=== PATIENT | female | born 2005 | race Caucasian/White ===

== ENCOUNTER 2025-04-30 19:00 | Emergency (ER) | payer OTHER, SELFPAY ==
[2025-04-30 19:01] VITALS: BP 127/83; PULSE 135; RESP 20; TEMP 39.6; O2SAT 96; BMI 24.7
--- NOTE | 2025-04-30 19:55 | EDS_ITS ---
HPI History of Present Illness Chief Complaint: General Illness Informant: patient and parent Narrative Narrative: 19-year-old female started having a headache gradual onset around a week ago, followed by subjective fevers and chills although she measured her temperature once and it was 98, sore throat and feeling like her throat is swollen although she is able to drink fluids she has been nauseated and having upper abdominal pain and not wanting to eat much. She has had some episodes of lightheadedness when she stands up but no syncope. No cough or dyspnea. She has had a couple episodes of nausea and dry heaving. No diarrhea. [facility] Medical History (Updated 04/30/25 @ 23:[address] Mathew Blakely MD) PCOS (polycystic ovarian syndrome) Physical exam, pre-employment Home Medications ?Medication ?Instructions ?Recorded ?Last Taken ?Type cephalexin 500 mg capsule 500 mg PO Q6 #28 CAPSULES Unknown Rx prednisone 20 mg tablet 40 mg (2 x 20 mg) PO DAILY 3 days 04/30/25 Unknown Rx #6 tabs Allergy/AdvReac Type Severity Reaction Status Date / Time Penicillins Allergy Mild Hives Verified 04/30/25 19:00 Social History Smoking Status: Never smoker ROS ROS ED Constitutional Constitutional ED: Reports chills, fever(s) and subjective Eyes Eyes: Denies change in vision or diplopia ENT ENT ED: Reports sore throat; Denies ear pain, nasal congestion or rhinorrhea Cardiovascular Cardiovascular: Denies chest pain or palpitations Respiratory/Chest Respiratory/Chest: Denies cough or dyspnea Gastrointestinal Gastrointestinal: Reports abdominal pain, nausea and vomiting; Denies diarrhea Genitourinary Genitourinary ED: Denies dysuria or hematuria Musculoskeletal Musculoskeletal: Denies myalgias or neck pain Integumentary Denies abscess or rash Neurologic Neurologic: Reports headache(s); Denies paresthesias or weakness Psychiatric Psychiatric: Denies depression or suicidal thoughts Endocrine Endocrinology: Denies polydipsia or polyuria EXAM Physical Exam Const Vital Signs: 04/30/25 19:01 04/30/25 19:01 04/30/25 20:00 Temperature 103.2 F H 103.2 F H 103.2 F H Temperature Source Oral Oral Oral Pulse Rate 135 H 135 H 117 H Respiratory Rate 20 H 20 H 23 H Blood Pressure 127/83 H 127/83 H 122/73 H Blood Pressure Mean 97 97 89 Pulse Ox 96 96 95 Oxygen Delivery Method Room Air Room Air Room Air 04/30/25 21:00 04/30/25 22:00 Temperature 100.1 F H 98.7 F Temperature Source Oral Oral Pulse Rate 114 H 103 H Respiratory Rate 20 H 20 H Blood Pressure 105/63 105/63 Blood Pressure Mean 77 77 Pulse Ox 100 99 Oxygen Delivery Method Room Air Room Air Positive well nourished and well developed General Appearance ED: well developed and NAD HEENT Reports moist mucous membranes HEENT Narrative: Hot potato voice. Bilateral tonsillar edema symmetric and exudates present. No stridor. normocephalic and atraumatic Throat: posterior oropharynx abnormal Eyes PERRL and EOMs intact bilaterally Neck supple and no meningeal signs Neck Narrative: Bilateral submandibular lymphadenopathy no posterior lymphadenopathy. Resp normal respiratory effort and clear to auscultation bilaterally Cardio no murmurs Rate: regular rate and tachycardic Rhythm: regular rhythm GI non-distended GI Narrative: Tender throughout upper abdomen no guarding or rebound otherwise benign abdomen Auscultation: normoactive bowel sounds Palpation: soft Back/Spine no CVA tenderness Neuro oriented x3, CN's II-XII intact bilaterally and no sensory deficits noted Sensorium / Orientation: alert Motor Exam: strength 5/5 throughout Psych mental status grossly normal Mood & Affect: anxious Skin Lesions: no lesions Rashes: no rashes MDM MDM MDM Narrative Medical decision making narrative: This patient appears to have tonsillitis and her symptoms are mostly consistent with strep throat, she has a temperature of 103.2, and all of the center criteria. However she has abdominal pain and tenderness. This suggest the possibility of mononucleosis. It takes a little while for our strep PCR test to return so I suggested testing her for all of the above at the same time to minimize delays and they were amenable to that. While getting blood work, patient was also amenable to getting an IV and a liter of fluid, Toradol, Zofran to try to help with her symptoms. All she felt a little better. The fever resolved. Her strep returned negative, her Monospot returned negative, and her blood tests are inconsistent with mononucleosis showing no atypical lymphocytes and no elevated liver enzymes. Furthermore, she actually has a predilection of neutrophils. I am going to treat her with steroids and antibiotics as if this is possibly group B strep infection, she has had hives to penicillins a long time ago, unclear if she has ever had cephalosporin, low risk to treat her with cephalexin and we discussed the low risk of cross-reactivity there, as well as prednisone. She states she was diagnosed with prediabetes, she was prescribed metformin but does not take it and does not have high blood sugars, she thinks this was related to a PCOS diagnosis. Therefore I am not treating her with Decadron, rather prednisone said if she has symptoms of hyperglycemia which we discussed she can discontinue it which we also discussed. It was also discussed with the patient that this may be viral and not curable with antibiotics. Lab Data Attestation: I reviewed the patient's lab results. Labs: Laboratory Results - last 24 hr 04/30/25 20:00 WBC 10.9 RBC 4.78 Hgb 13.0 Hct 37.8 MCV 79.1 L MCH 27.2 MCHC 34.4 RDW Std Deviation 35.2 RDW Coeff of Ayan 12.4 Plt Count 190 MPV 11.3 Immature Gran % (Auto) 0.200 Neut % (Auto) 81.8 H Lymph % (Auto) 9.4 L Marin % (Auto) 8.3 Eos % (Auto) 0.0 Baso % (Auto) 0.3 Absolute Neuts (auto) 8.9 H Absolute Lymphs (auto) 1.02 Nucleated RBC % 0 Differential Comment SCANNED Platelet Estimate ADEQUATE Sodium 135 Potassium 3.8 Chloride 98 Carbon Dioxide 20.3 L Anion Gap 17 H BUN 15 Creatinine 0.81 Estim Creat Clear Calc 100.17 Est GFR (MDRD) Non-Af 107 BUN/Creatinine Ratio 17.8 Glucose 92 Calcium 9.3 Total Bilirubin 0.73 AST 23 ALT 15 Alkaline Phosphatase 80 Total Protein 8.0 Albumin 4.3 Globulin 3.6 Albumin/Globulin Ratio 1.2 Monoscreen Negative Discharge Plan Triage Chief Complaint: General Illness ED Provider: Mathew Blakely Dx/Rx/DC Orders Clinical Impression: Acute tonsillitis, Acute upper abdominal pain Instructions: Tonsillitis in Adults Prescriptions: New prednisone 20 mg tablet 40 mg PO DAILY 3 Days Qty: 6 0RF cephalexin 500 mg capsule 500 mg PO Q6 Qty: 28 0RF Primary Care Provider: Care Physician,No Primary Referrals: Doctor,Your [Non-Staff] - 1 Week if not improving Print Language: Bulgarian Disposition Disposition: Home, Self Care
[2025-04-30] MEDS: 0.9% Normal Saline (1000mL) 1,000 ML 999 ML IV (19:56)
[2025-04-30] MEDS: Ketorolac 30 MG/ML Syringe IV (19:57)
[2025-04-30 20:00] VITALS: BP 122/73; PULSE 117; RESP 23; TEMP 39.6; O2SAT 95
[2025-04-30 20:16] LABS: Hematocrit 37.8 % (37-47); Hemoglobin 13.0 g/dL (12.0-15.0); Immature Granulocytes Count 0.020 X10^3/uL (0.0-0.0); Mean Corp Hgb Conc 34.4 g/dL (32-36); Mean Corpuscular Volume 79.1 fL (81-99); Mean Platelet Vol. 11.3 fl (6.2-12.0); NRBC Flagged by Analyzer 0 % (0-5); POSITIVE MORPHOLOGY YES; Platelet Count 190 K/mm3 (150-450); RBC Distribution Width CV 12.4 % (11.6-14.6); RBC Distribution Width SD 35.2 fl (35.1-43.9); Red Blood Count 4.78 M/mm3 (4.2-5.4); White Blood Count 10.9 K/mm3 (4.4-11.0)
[2025-04-30 20:21] LABS: Differential Indicated SCAN CRITERIA MET
[2025-04-30 20:57] LABS: AST(SGOT) 23 U/L (<=31); Alanine Aminotransfer ALT/SGPT 15 U/L (<=34); Albumin, Serum 4.3 g/dL (3.5-5.0); Alkaline Phosphatase 80 U/L (35-104); Anion Gap 17 (5-15); BUN 15 mg/dL (4-19); BUN/Creat Ratio 17.8 RATIO (10-20); Calcium,Total 9.3 mg/dL (7.6-11.0); Carbon Dioxide 20.3 mmol/L (21.0-32.0); Chloride 98 mmol/L (98-108); Estimated Creatinine Clearance 100.17 ml/min (50-250); Globulin 3.6 g/dL (2.2-4.2); Glucose 92 mg/dL (70-99); Internal QC Validated? YES +Cl - CLEAR BKGD; Potassium 3.8 mmol/L (3.3-5.1); Record Kit Lot#, Mono 13241430
[2025-04-30 21:00] VITALS: BP 105/63; PULSE 114; RESP 20; TEMP 37.8; O2SAT 100
[2025-04-30 21:17] LABS: Differential Comment SCANNED
[2025-04-30 22:00] VITALS: BP 105/63; PULSE 103; RESP 20; TEMP 37.1; O2SAT 99
[2025-04-30 23:00] VITALS: BP 111/71; PULSE 96; RESP 19; O2SAT 99
[2025-04-30 23:34] VITALS: BP 109/70; PULSE 99; RESP 20; TEMP 37.2; O2SAT 100
== END 2025-04-30 23:35 | disposition home or self-care (01) ==
PROVIDERS: Emergency Provider Emergency Medicine; Visit Provider Emergency Medicine
DX: J03.90 Acute tonsillitis, unspecified (principal); R10.819 Abdominal tenderness, unspecified site; R11.0 Nausea; R10.10 Upper abdominal pain, unspecified; E28.2 Polycystic ovarian syndrome; R51.9 Headache, unspecified
CPT/HCPCS: 80053; 85025; 86308; 87651; 96361; 96374; 96375; 99283; A4216; J2405